=== PATIENT | male | born 1995 | race American Indian/Alaskan Native ===

== ENCOUNTER 2017-08-21 21:58 | Emergency (ER) | payer MEDICAID ==
[2017-08-22] MEDS ORDERED: MOTRIN ONE (02:17)
[2017-08-22] MEDS ORDERED: MOTRIN PO ONE (02:39)
[2017-08-22] MEDS ORDERED: CLEOCIN PO ONE (04:51)
[2017-08-22] MEDS ORDERED: TYLENOL #3 PO ONE (04:51)
--- NOTE | 2017-08-22 05:00 | Emergency Department Report ---
ED ENT HPI - General Chief complaint: Dental/Oral Stated complaint: MOUTH PAIN Time Seen by Provider: 08/22/17 04:50 Source: patient Mode of arrival: Ambulatory Limitations: No Limitations - History of Present Illness Initial comments: 22-year-old male past medical history none presents with complaint of right- sided toothache and slight right-sided facial swelling. Patient denies fever chills nausea vomiting shortness of breath. No trismus or drooling noted. States he has had very mild swelling of right upper lip. Denies having any allergies to any specific substances. Patient is speaking in full sentences no audible wheezing or stridor. Slight inflammation of right cheek region. Patient states he has cavities which have not yet been addressed. he denies any tongue pain or swelling within his oral cavity. Denies pus or blood drainage from mouth. Denies any difficulty swallowing solids or liquids but does state that his teeth are sensitive. MD complaint: tooth pain Onset/Timin -: days(s) Location: tooth # Severity: moderate Severity scale (0 -10): 6 Quality: aching Consistency: intermittent Worsens with: eating Context- Dental: history of dental caries, poor dental care Associated Symptoms: gum swelling, toothache - Related Data Previous Rx's Medication Instructions Recorded Last Taken Type Acetaminophen/Codeine [Tylenol 1 tab PO Q6H PRN #8 tab 08/22/17 Unknown Rx /Codeine # 3 tab] Chlorhexidine Mouthwash [Peridex] 15 ml MM BID #1 bottle 08/22/17 Unknown Rx Clindamycin [Clindamycin CAP] 300 mg PO Q6H #28 capsule 08/22/17 Unknown Rx EPINEPHrine [Epipen] 0.3 mg IJ ONCE PRN #1 auto.injct 08/22/17 Unknown Rx Ibuprofen [Motrin] 800 mg PO Q8HR PRN #20 tablet 08/22/17 Unknown Rx diphenhydrAMINE [Benadryl CAP] 25 mg PO Q8HR PRN #20 capsule 08/22/17 Unknown Rx Allergies Allergy/AdvReac Type Severity Reaction Status Date / Time No Known Allergies Allergy Verified 08/22/17 02:26 ED Dental HPI - General Chief complaint: Dental/Oral Stated complaint: MOUTH PAIN Time Seen by Provider: 08/22/17 04:50 Source: patient Mode of arrival: Ambulatory Limitations: No Limitations - Related Data Previous Rx's Medication Instructions Recorded Last Taken Type Acetaminophen/Codeine [Tylenol 1 tab PO Q6H PRN #8 tab 08/22/17 Unknown Rx /Codeine # 3 tab] Chlorhexidine Mouthwash [Peridex] 15 ml MM BID #1 bottle 08/22/17 Unknown Rx Clindamycin [Clindamycin CAP] 300 mg PO Q6H #28 capsule 08/22/17 Unknown Rx EPINEPHrine [Epipen] 0.3 mg IJ ONCE PRN #1 auto.injct 08/22/17 Unknown Rx Ibuprofen [Motrin] 800 mg PO Q8HR PRN #20 tablet 08/22/17 Unknown Rx diphenhydrAMINE [Benadryl CAP] 25 mg PO Q8HR PRN #20 capsule 08/22/17 Unknown Rx Allergies Allergy/AdvReac Type Severity Reaction Status Date / Time No Known Allergies Allergy Verified 08/22/17 02:26 ED Review of Systems ROS: Stated complaint: MOUTH PAIN Other details as noted in HPI Constitutional: denies: chills, fever Eyes: denies: eye pain, eye discharge, vision change ENT: as per HPI, dental pain. denies: ear pain, throat pain Respiratory: denies: cough, shortness of breath, wheezing Cardiovascular: denies: chest pain, palpitations Endocrine: no symptoms reported Gastrointestinal: denies: abdominal pain, nausea, diarrhea Genitourinary: denies: urgency, dysuria Musculoskeletal: denies: back pain, joint swelling, arthralgia Skin: denies: rash, lesions Neurological: denies: headache, weakness, paresthesias Psychiatric: denies: anxiety, depression Hematological/Lymphatic: denies: easy bleeding, easy bruising ED Past Medical Hx - Past Medical History Previous Medical History?: No - Surgical History Past Surgical History?: Yes Additional Surgical History: trach - Social History Smoking Status: Current Every Day Smoker Substance Use Type: None - Medications Home Medications: Home Medications Medication Instructions Recorded Confirmed Last Taken Type Acetaminophen/Codeine [Tylenol 1 tab PO Q6H PRN #8 tab 08/22/17 Unknown Rx /Codeine # 3 tab] Chlorhexidine Mouthwash [Peridex] 15 ml MM BID #1 bottle 08/22/17 Unknown Rx Clindamycin [Clindamycin CAP] 300 mg PO Q6H #28 capsule 08/22/17 Unknown Rx EPINEPHrine [Epipen] 0.3 mg IJ ONCE PRN #1 auto.injct 08/22/17 Unknown Rx Ibuprofen [Motrin] 800 mg PO Q8HR PRN #20 tablet 08/22/17 Unknown Rx diphenhydrAMINE [Benadryl CAP] 25 mg PO Q8HR PRN #20 capsule 08/22/17 Unknown Rx ED Physical Exam - General Limitations: No Limitations General appearance: alert, in no apparent distress - Head Head exam: Present: atraumatic, normocephalic - Expanded Head Exam Expanded 1 - Slight swelling here - Eye Eye exam: Present: normal appearance - ENT ENT exam: Present: mucous membranes moist - Expanded ENT Exam Expanded Teeth exam: Present: dental caries (poor dentition with multiple dental cavities on right) 1 - Other (cavities here) - Neck Neck exam: Present: normal inspection - Respiratory Respiratory exam: Present: normal lung sounds bilaterally. Absent: respiratory distress - Cardiovascular Cardiovascular Exam: Present: regular rate, normal rhythm. Absent: systolic murmur, diastolic murmur, rubs, gallop - GI/Abdominal GI/Abdominal exam: Present: soft, normal bowel sounds - Rectal Rectal exam: Present: deferred - Extremities Exam Extremities exam: Present: normal inspection - Back Exam Back exam: Present: normal inspection - Neurological Exam Neurological exam: Present: alert, oriented X3 - Psychiatric Psychiatric exam: Present: normal affect, normal mood - Skin Skin exam: Present: warm, dry, intact, normal color. Absent: rash ED Course Vital Signs 08/21/17 22:29 Temperature 98.4 F Pulse Rate 95 H Respiratory 19 Rate Blood Pressure 120/67 O2 Sat by Pulse 100 Oximetry ED Medical Decision Making - Medical Decision Making A/P: dental abscess 1- Motrin when necessary, clindamycin 7 day course, Orajel when necessary, Peridex mouthwash daily basis, short course codeine when necessary 2- I provided patient with information for multiple dental clinics to follow up and stressed the importance of dental follow-up as he has multiple cavities that require dental fixation or instrumentation 3- no clinical signs no Bora's angina, no induration or cellulitis of floor of mouth or tongue. No palpable facial abscess. Advised patient that if he notices any significant swelling of his tongue or difficulty breathing to use EpiPen and seek immediate medical attention. Patient stated he understood my instructions 4- patient able to tolerate by mouth before discharge 5- no signs of facial infection. Advised patient that if he does not take antibiotics with follow-up with a dentist as soon as possible that a can result in potentially serious or dangerous infection to develop in jaw or face. Patient states that he understood these instructions. I advised patient to return to the ED for any persistent unrelenting nausea or vomiting fever or chills or headaches. Critical care attestation.: If time is entered above; I have spent that time in minutes in the direct care of this critically ill patient, excluding procedure time. ED Disposition Clinical Impression: Dental abscess Disposition: TO HOME OR SELFCARE Is pt being admited?: No Does the pt Need Aspirin: No Condition: Stable Instructions: Dental Abscess (ED) Prescriptions: Acetaminophen/Codeine [Tylenol /Codeine # 3 tab] 1 tab PO Q6H PRN #8 tab PRN Reason: Pain Chlorhexidine Mouthwash [Peridex] 15 ml MM BID #1 bottle Clindamycin [Clindamycin CAP] 300 mg PO Q6H #28 capsule diphenhydrAMINE [Benadryl CAP] 25 mg PO Q8HR PRN #20 capsule PRN Reason: Allergic Reaction EPINEPHrine [Epipen] 0.3 mg IJ ONCE PRN #1 auto.injct PRN Reason: Angioedema Ibuprofen [Motrin] 800 mg PO Q8HR PRN #20 tablet PRN Reason: Pain Referrals: [facility] [Outside] - 3-5 Days [facility] [Outside] - 3-5 Days Forms: Work/School Release Form(ED) Time of Disposition: 05:06
[2017-08-22 07:14] VITALS: BP 126/78
== END 2017-08-22 06:00 | disposition home or self-care (01) ==
LOC: ED 21:58
DX: K04.7 Periapical abscess without sinus (principal); F17.200 Nicotine dependence, unspecified, uncomplicated
CPT/HCPCS: 99282

== ENCOUNTER 2018-12-31 08:17 | Emergency (ER) | payer MEDICAID ==
[2018-12-31] MEDS ORDERED: NORCO 5/325 PO ONE (08:41)
[2018-12-31] MEDS ORDERED: IBUPROFEN PO ONE (08:41)
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
[2018-12-31] MEDS ORDERED: XYLOCAINE 1% 20 mL INFILTRATI ONE (08:59)
[2018-12-31] MEDS ORDERED: XYLOCAINE 1% 20 mL ONE (09:00)
--- NOTE | 2018-12-31 09:04 | XRay Report ---
RIGHT HAND HISTORY: Trauma and pain. COMPARISON: None. TECHNIQUE: 3 views of the right hand were obtained. FINDINGS: Bones: A mildly displaced oblique fracture at the medial aspect of the base of the fourth metacarpal. Callus. No other fracture. No dislocation. Joint spaces: Maintained. Soft tissues: Normal. No soft tissue air or foreign body. Additional findings: None. IMPRESSION: An acute closed traumatic mildly displaced fracture at the base of the fourth metacarpal. No other ab normality. Signer Name: Pedro Sheridan MD Signed: 12/31/2018 9:00 AM Workstation Name: [id number]
[2018-12-31 09:58] VITALS: BP 110/60
== END 2018-12-31 09:57 | disposition home or self-care (01) ==
LOC: ED 08:17
DX: S62.339A Displaced fracture of neck of unspecified metacarpal bone, initial encounter for closed fracture (principal); F17.200 Nicotine dependence, unspecified, uncomplicated; Z79.899 Other long term (current) drug therapy; Y04.8XXA Assault by other bodily force, initial encounter; Y93.89 Activity, other specified; Y92.89 Other specified places as the place of occurrence of the external cause; Y99.8 Other external cause status

== ENCOUNTER 2021-07-30 17:36 | Emergency (ER) | payer MEDICAID ==
[2021-07-30 20:47] VITALS: BP 134/57
== END 2021-07-31 01:00 | disposition left against medical advice (07) ==
LOC: ED 17:36
DX: R21 Rash and other nonspecific skin eruption (principal); Z53.21 Procedure and treatment not carried out due to patient leaving prior to being seen by health care provider

== ENCOUNTER → 2021-09-25 | Emergency (ER) | payer MEDICAID ==
[2021-09-25 22:22] VITALS: BP 139/72
== END ==
LOC: ED 19:45
DX: R10.9 Unspecified abdominal pain (principal); Z53.21 Procedure and treatment not carried out due to patient leaving prior to being seen by health care provider

== ENCOUNTER 2021-09-27 23:00 | Emergency (ER) | payer MEDICAID ==
--- NOTE | 2021-09-27 23:43 | Emergency Department Report ---
HPI - General Chief Complaint: Psych Time Seen by Provider: 09/27/21 23:25 - HPI HPI: Room 13 Patient is a 26-year-old male present with a chief complaint of schizophrenia. Patient has a history of schizophrenia and states that he came to the emergency department because he needs help with his schizophrenia. Patient has rambling speech and does not answer all questions posed to him. The patient denies taking his schizophrenic medications ED Past Medical Hx - Past Medical History Hx Psychiatric Treatment: Yes (Schizophrenia) - Surgical History Additional Surgical History: trach - Family History Family history: no significant - Social History Smoking Status: Unknown if ever smoked Substance Use Type: None - Medications Home Medications: Home Medications Medication Instructions Recorded Confirmed Last Taken Type Acetaminophen/Codeine [Tylenol 1 tab PO Q6H PRN #8 tab 08/22/17 Unknown Rx /Codeine # 3 tab] Chlorhexidine Mouthwash [Peridex] 15 ml MM BID #1 bottle 08/22/17 Unknown Rx Clindamycin [Clindamycin CAP] 300 mg PO Q6H #28 capsule 08/22/17 Unknown Rx EPINEPHrine [Epipen] 0.3 mg IJ ONCE PRN #1 auto.injct 08/22/17 Unknown Rx Ibuprofen [Motrin] 800 mg PO Q8HR PRN #20 tablet 08/22/17 Unknown Rx diphenhydrAMINE [Benadryl CAP] 25 mg PO Q8HR PRN #20 capsule 08/22/17 Unknown Rx HYDROcodone/APAP 5-325 [[place] 1 each PO Q6HR PRN #12 tablet 12/31/18 Unknown Rx 5/325] Ibuprofen [Motrin 800 MG tab] 800 mg PO Q8HR PRN #30 tablet 12/31/18 Unknown Rx ED Review of Systems ROS: Stated complaint: MH Other details as noted in HPI Comment: Unobtainable due to pts medical conditions Physical Exam - Physical Exam Vital Signs: Vital Signs 09/27/21 23:02 Temperature 99.1 F Pulse Rate 65 Respiratory 18 Rate Blood Pressure 134/74 O2 Sat by Pulse 98 Oximetry Physical Exam: GENERAL: The patient is well-developed well-nourished male lying on stretcher not appearing to be in acute distress. [] HEENT: Normocephalic. Atraumatic. Extraocular motions are intact. Patient has moist mucous membranes. NECK: Supple. Trachea midline CHEST/LUNGS: Clear to auscultation. There is no respiratory distress noted. HEART/CARDIOVASCULAR: Regular. There is no tachycardia. There is no gallop rub or murmur. ABDOMEN: Abdomen is soft, nontender. Patient has normal bowel sounds. There is no abdominal distention. SKIN: There is no rash. There is no edema. There is no diaphoresis. NEURO: The patient is awake, alert, and oriented. The patient is cooperative. The patient has no focal neurologic deficits. The patient has normal speech. GCS 15 MUSCULOSKELETAL: There is no evidence of acute injury. ED Course Vital Signs 09/27/21 23:02 Temperature 99.1 F Pulse Rate 65 Respiratory 18 Rate Blood Pressure 134/74 O2 Sat by Pulse 98 Oximetry ED Medical Decision Making - Lab Data Result diagrams: 09/28/21 01:35 09/28/21 01:35 Laboratory Tests 09/28/21 09/28/21 09/28/21 01:17 01:17 01:35 WBC 9.4 RBC 5.17 H Hgb 13.5 Hct 41.9 MCV 81 L MCH 26 L MCHC 32 RDW 14.7 Plt Count 201 Lymph % (Auto) 22.5 [place] % (Auto) 10.6 H Eos % (Auto) 0.6 Baso % (Auto) 0.7 Lymph # (Auto) 2.1 [place] # (Auto) 1.0 H Eos # (Auto) 0.1 Baso # (Auto) 0.1 Seg Neutrophils % 65.6 Seg Neutrophils # 6.2 Sodium Potassium Chloride Carbon Dioxide Anion Gap BUN Creatinine Estimated GFR BUN/Creatinine Ratio Glucose Calcium Urine Color Yellow Urine Turbidity Clear Urine pH 5.0 Ur Specific [place] 1.031 H Urine Protein 30 mg/dl Urine Glucose (UA) Neg Urine Ketones Tr Urine Blood Neg Urine Nitrite Neg Urine Bilirubin Neg Urine Urobilinogen 4.0 Ur Leukocyte Esterase Neg Urine WBC (Auto) 1.0 Urine RBC (Auto) 1.0 U Epithel Cells (Auto) 1.0 Urine Bacteria (Auto) 1+ Urine Mucus 1+ Salicylates Urine Opiates Screen Presumptive negative Urine Methadone Screen Presumptive negative Acetaminophen Ur Barbiturates Screen Presumptive negative Ur Phencyclidine Scrn Presumptive negative Ur Amphetamines Screen Presumptive negative U Benzodiazepines Scrn Presumptive negative Urine Cocaine Screen Presumptive negative U Marijuana (THC) Screen Presumptive positive Drugs of Abuse Note Disclamer Plasma/Serum Alcohol 0709/28/21 09/28/21 01:35 01:35 01:35 WBC RBC Hgb Hct MCV MCH MCHC RDW Plt Count Lymph % (Auto) [place] % (Auto) Eos % (Auto) Baso % (Auto) Lymph # (Auto) [place] # (Auto) Eos # (Auto) Baso # (Auto) Seg Neutrophils % Seg Neutrophils # Sodium 138 Potassium 4.1 Chloride 100.0 Carbon Dioxide 27 Anion Gap 15 BUN 16 Creatinine 0.9 Estimated GFR > 60 BUN/Creatinine Ratio 18 Glucose 85 Calcium 9.4 Urine Color Urine Turbidity Urine pH Ur Specific [place] Urine Protein Urine Glucose (UA) Urine Ketones Urine Blood Urine Nitrite Urine Bilirubin Urine Urobilinogen Ur Leukocyte Esterase Urine WBC (Auto) Urine RBC (Auto) U Epithel Cells (Auto) Urine Bacteria (Auto) Urine Mucus Salicylates < 0.3 L Urine Opiates Screen Urine Methadone Screen Acetaminophen 5.0 L Ur Barbiturates Screen Ur Phencyclidine Scrn Ur Amphetamines Screen U Benzodiazepines Scrn Urine Cocaine Screen U Marijuana (THC) Screen Drugs of Abuse Note Plasma/Serum Alcohol 09/28/21 01:35 WBC RBC Hgb Hct MCV MCH MCHC RDW Plt Count Lymph % (Auto) [place] % (Auto) Eos % (Auto) Baso % (Auto) Lymph # (Auto) [place] # (Auto) Eos # (Auto) Baso # (Auto) Seg Neutrophils % Seg Neutrophils # Sodium Potassium Chloride Carbon Dioxide Anion Gap BUN Creatinine Estimated GFR BUN/Creatinine Ratio Glucose Calcium Urine Color Urine Turbidity Urine pH Ur Specific [place] Urine Protein Urine Glucose (UA) Urine Ketones Urine Blood Urine Nitrite Urine Bilirubin Urine Urobilinogen Ur Leukocyte Esterase Urine WBC (Auto) Urine RBC (Auto) U Epithel Cells (Auto) Urine Bacteria (Auto) Urine Mucus Salicylates Urine Opiates Screen Urine Methadone Screen Acetaminophen Ur Barbiturates Screen Ur Phencyclidine Scrn Ur Amphetamines Screen U Benzodiazepines Scrn Urine Cocaine Screen U Marijuana (THC) Screen Drugs of Abuse Note Plasma/Serum Alcohol < 0.01 - Differential Diagnosis Schizophrenia Critical care attestation.: If time is entered above; I have spent that time in minutes in the direct care of this critically ill patient, excluding procedure time. ED Disposition Clinical Impression: Schizophrenia Disposition: 30 STILL A PATIENT Is pt being admited?: No Does the pt Need Aspirin: No Condition: Stable Time of Disposition: 02:34 (Awaiting eval)
[2021-09-28 01:23] LABS: Bilirubin,Urine NEG (Negative); Blood,Urine NEG (Negative); Color,Urine Yellow (Yellow)
[2021-09-28 01:25] LABS: Bacteria,Urine 1+ /HPF (Negative); Mucus,Urine 1+ /HPF
[2021-09-28 01:32] LABS: Amphetamine Screen,Urine PRESUMPTIVE NEGATIVE; Benzodiazepines Screen,Urine PRESUMPTIVE NEGATIVE; Cannabinoid Screen,Urine PRESUMPTIVE POSITIVE; Cocaine Screen,Urine PRESUMPTIVE NEGATIVE; Methadone Screen,Urine PRESUMPTIVE NEGATIVE; Opiate Screen,Urine PRESUMPTIVE NEGATIVE
[2021-09-28 01:50] LABS: Basophils # (Auto) 0.1 K/mm3 (0.0-0.1); Basophils % (Auto) 0.7 % (0.0-1.8); Eosinophils # (Auto) 0.1 K/mm3 (0.0-0.4); Eosinophils % (Auto) 0.6 % (0.0-4.3); Hematocrit 41.9 % (35.5-45.6); Hemoglobin 13.5 gm/dl (11.8-15.2); Lymphocytes # (Auto) 2.1 K/mm3 (1.2-5.4); Lymphocytes % (Auto) 22.5 % (13.4-35.0); Mean Corpuscular HGB Conc 32 % (32-34); Mean Corpuscular Volume 81 fl (84-94); Monocytes % (Auto) 10.6 % (0.0-7.3); Platelet Count 201 K/mm3 (140-440); Red Blood Count 5.17 M/mm3 (3.65-5.03); Red Cell Distribution Width 14.7 % (13.2-15.2)
[2021-09-28 02:10] LABS: BUN/Creatinine Ratio 18; Blood Urea Nitrogen 16 mg/dL (9-20); Calcium 9.4 mg/dL (8.4-10.2); Hemolysis Index 12
--- NOTE | 2021-09-28 10:45 | Consultation ---
History of Present Illness - Reason for Consult Consult date: 09/28/21 Reason for consult: psychosis - History of Present Psychiatric Illness The patient was seen today. He is in the seclusion room. The patient is rambling, and difficult to follow. He is responding to internal stimuli, and laughing at times. He says "my ribs hurt and I have schizophrenia." The patient says he has a history of schizophrenia but been off meds. He says he just got out of shelter, and been off of his meds while in shelter. He then says he's been out of shelter about two months but been off of his meds for two months, then states "but I did have them last week." The patient then stops talking to me and starts holding conversations with people not there. Will recommend inpatient psychiatric treatment and stabilize the patient on medications. PAST PSYCHIATRIC HISTORY Unable to assess due to acute psychosis PAST MEDICAL HISTORY: none reported Family Psychiatric History: None reported or documented SOCIAL HISTORY Unable to assess due to acute psychosis REVIEW OF SYSTEMS Unable to assess MENTAL STATUS EXAMINATION Unable to assess Assessment and Plan (1) Schizophrenia Treatment 1013 Prozac 20mg po daily Olanzapine 7.5mg po daily Doxepin 25mg po qhs Haldol 5mg IM q6h prn agitation Sitter: Per primary Medical: Per primary Disposition: Recommend acute inpatient psychiatric treatment. Will follow. Thanks Case staffed with Dr. Rick Medications and Allergies Allergies Allergy/AdvReac Type Severity Reaction Status Date / Time No Known Allergies Allergy Verified 12/31/18 08:25 Home Medications Medication Instructions Recorded Confirmed Last Taken Type Acetaminophen/Codeine [Tylenol 1 tab PO Q6H PRN #8 tab 08/22/17 Unknown Rx /Codeine # 3 tab] Chlorhexidine Mouthwash [Peridex] 15 ml MM BID #1 bottle 08/22/17 Unknown Rx Clindamycin [Clindamycin CAP] 300 mg PO Q6H #28 capsule 08/22/17 Unknown Rx EPINEPHrine [Epipen] 0.3 mg IJ ONCE PRN #1 auto.injct 08/22/17 Unknown Rx Ibuprofen [Motrin] 800 mg PO Q8HR PRN #20 tablet 08/22/17 Unknown Rx diphenhydrAMINE [Benadryl CAP] 25 mg PO Q8HR PRN #20 capsule 08/22/17 Unknown Rx HYDROcodone/APAP 5-325 [[place] 1 each PO Q6HR PRN #12 tablet 12/31/18 Unknown Rx 5/325] Ibuprofen [Motrin 800 MG tab] 800 mg PO Q8HR PRN #30 tablet 12/31/18 Unknown Rx Mental Status Exam - Vital signs Last Vital Signs Temp 98.7 F 09/28/21 09:43 Pulse 69 09/28/21 09:43 Resp 18 09/28/21 09:43 BP 120/67 09/28/21 09:43 Pulse Ox 100 09/28/21 09:44 Results Result Diagrams: 09/28/21 01:35 09/28/21 01:35 Abnormal lab results 09/28/21 09/28/21 09/28/21 Range/Units 01:17 01:35 01:35 RBC 5.17 H (3.65-5.03) M/mm3 MCV 81 L (84-94) fl MCH 26 L (28-32) pg [place] % (Auto) 10.6 H (0.0-7.3) % [place] # (Auto) 1.0 H (0.0-0.8) K/mm3 Ur Specific [place] 1.031 H (1.003-1.030) Salicylates < 0.3 L (2.8-20.0) mg/dL Acetaminophen (10.0-30.0) ug/mL 09/28/21 Range/Units 01:35 RBC (3.65-5.03) M/mm3 MCV (84-94) fl MCH (28-32) pg [place] % (Auto) (0.0-7.3) % [place] # (Auto) (0.0-0.8) K/mm3 Ur Specific [place] (1.003-1.030) Salicylates (2.8-20.0) mg/dL Acetaminophen 5.0 L (10.0-30.0) ug/mL All other labs normal.
[2021-09-28] MEDS ORDERED: HALOPERIDOL LACTATE 5 MG/1 ML INJ IM PRN (11:30)
[2021-09-28] MEDS: FLUoxetine 20 MG CAP PO SCH (11:33)
--- NOTE | 2021-09-28 19:05 | Event Note ---
Date: 09/28/21 Patient evaluated today by mental health risk assessor. Recommended inpatient psychiatric treatment. Patient currently in no acute distress.
[2021-09-28] MEDS: DOXEPIN 25 MG CAP PO SCH (22:11)
--- NOTE | 2021-09-29 09:27 | Progress Note ---
Subjective - Reason for Consult Consult date: 09/29/21 Reason for consult: psychosis - Chief Complaint Chief complaint: The patient was seen today. He is in seclusion. His mood is elevated. He says he slept "beautifully." The patient says he feels "100% better." He then says "I feel 300% better." His thoughts are more organized today. He denies SI/HI. He says "I never had those thoughts in my life. I'm too real for that." The patient does endorse hearing voices. He says "I hear them a little bit. But I can control them." The nurse says the patient has been agitated, talking loudly and talking to himself this morning. Will continue to treat and recommend acute psychiatric inpatient treatment. REVIEW OF SYSTEMS Constitutional: Negative for weight loss ENT: Negative for stridor Respiratory: Negative for cough or hemoptysis All other systems reviewed and are negative MENTAL STATUS EXAMINATION General Appearance and Behavior: Age appropriate, wearing appropriate clothes, cooperative, polite with questioning, good eye contact, elevated mood Cooperation: cooperative Psychomotor Behavior: Psychomotor normal Mood: better Affect and affective range: congruent with stated affect Thought Process: illogical Thought Content: auditory hallucinations Speech: Normal volume, Regular rate and rhythm Suicidal Ideation: Denies Homicidal Ideation: Denies Hallucination: Auditory Delusions: None elicited Impulse Control: Limited Insight and Judgment: Limited Memory: Limited Attention: distracted Orientation: Alert and oriented Assessment and Plan (1) Schizophrenia Treatment 1013 Prozac 20mg po daily Increase Olanzapine 10mg po daily Doxepin 25mg po qhs Haldol 5mg IM q6h prn agitation Sitter: Per primary Medical: Per primary Disposition: Recommend acute inpatient psychiatric treatment. Will follow. Thanks Case staffed with Dr. Rick Mental Status Exam - Vital signs Last Vital Signs Temp 98.7 F 09/28/21 09:43 Pulse 69 09/28/21 09:43 Resp 18 09/28/21 09:43 BP 120/67 09/28/21 09:43 Pulse Ox 97 09/28/21 19:49
[2021-09-29] MEDS: FLUoxetine 20 MG CAP PO SCH (10:33)
--- NOTE | 2021-09-29 11:34 | Event Note ---
Date: 09/29/21 I HAVE SEEN THE PATIENT MYSELF; HE DENIES SI/HI AND STATES FEELS BETTER BUT IS HEARING VOICES. DENIES ANY DISCOMFORT. BEHAVIOR HEALTH CURRENTLY RECOMMEND THE FOLLOWIN Prozac 20mg po daily Increase Olanzapine 10mg po daily Doxepin 25mg po qhs Haldol 5mg IM q6h prn agitation Sitter: Per primary Medical: Per primary Disposition: Recommend acute inpatient psychiatric treatment. Will follow. Thanks Case staffed with Dr. Rick
[2021-09-29] MEDS: DOXEPIN 25 MG CAP PO SCH (22:34)
[2021-09-30] MEDS: FLUoxetine 20 MG CAP PO SCH (10:15)
[2021-09-30 10:16] VITALS: BP 131/73
--- NOTE | 2021-09-30 10:44 | Progress Note ---
Subjective - Reason for Consult Consult date: 09/30/21 Reason for consult: psychosis - Chief Complaint Chief complaint: The patient was seen today. He presents much better today. He is calm, cooperative and polite. He says "I feel good. When am I leaving?" The patient denies SI/HI. He says "I told you yesterday, I have never been any of that. I'm not stupid enough to do that." When asking about hallucinations, he replies "I'm schizophrenic. I've heard them for years, but not hearing them right now, Ma'am." He says he slept well and his appetite is good. REVIEW OF SYSTEMS Constitutional: Negative for weight loss ENT: Negative for stridor Respiratory: Negative for cough or hemoptysis All other systems reviewed and are negative MENTAL STATUS EXAMINATION General Appearance and Behavior: Age appropriate, wearing appropriate clothes, cooperative, polite with questioning, good eye contact, elevated mood Cooperation: cooperative Psychomotor Behavior: Psychomotor normal Mood: better Affect and affective range: congruent with stated affect Thought Process: goal directed Thought Content: None Speech: Normal volume, Regular rate and rhythm Suicidal Ideation: Denies Homicidal Ideation: Denies Hallucination: Denies Delusions: None elicited Impulse Control: Limited Insight and Judgment: Limited Memory: Limited Attention: distracted Orientation: Alert and oriented Assessment and Plan (1) Schizophrenia Treatment d/c 1013 Prozac 20mg po daily Olanzapine 10mg po daily Doxepin 25mg po qhs Sitter: Per primary Medical: Per primary Disposition: Recommend acute inpatient psychiatric treatment. Will follow. Thanks Case staffed with Dr. Rick Mental Status Exam - Vital signs Last Vital Signs Temp 98 F 09/30/21 10:15 Pulse 78 09/30/21 10:15 Resp 18 09/30/21 10:15 BP 131/73 09/30/21 10:15 Pulse Ox 100 09/30/21 10:16
== END 2021-09-30 12:16 | disposition home or self-care (01) ==
LOC: ED 23:00
DX: F20.9 Schizophrenia, unspecified (principal); Z20.822 Contact with and (suspected) exposure to COVID-19; Z79.899 Other long term (current) drug therapy
CPT/HCPCS: 36415; 80048; 80307; 81001; 85025; 99284; U0003; 80320; 99283; G0480